=== PATIENT | female | born 1955 | race Caucasian/White ===

== ENCOUNTER 2020-01-29 16:50 | Emergency (ER) | payer MEDICARE, BC ==
[~2020-01-29] VITALS: Ht 160 cm; Wt 104.3 kg
[~2020-01-29 16:50] MED LIST: BUSPIRONE HCL10 MG PO; HYDROCHLOROTH12.5 MG PO; LISINOPRIL20 MG PO; MIRAPEX ER2.25 MG PO; NADOLOL80 MG PO; NAPROXEN500 MG PO; NORCO 5-325 TA1 EACH PO; OMEPRAZOLE20 MG PO; PRILOSEC2.5 MG PO; PROZAC20 MG PO; ZOCOR20 MG PO; ZOFRAN4 MG PO
[2020-01-29] MEDS ORDERED: PRAMIPEXOLE D0.25 MG PO (17:17)
[2020-01-29] MEDS ORDERED: CARBIDOPA-LEVO1 EAC5 PO (17:18)
[2020-01-29] MEDS ORDERED: DULOXETINE HCL60 MG PO (17:19)
== END 2020-01-29 18:50 | disposition home or self-care (01) ==
LOC: ED 16:50
DX: S42.202A Unspecified fracture of upper end of left humerus, initial encounter for closed fracture (principal); S42.212A Unspecified displaced fracture of surgical neck of left humerus, initial encounter for closed fracture; F17.200 Nicotine dependence, unspecified, uncomplicated; Z88.8 Allergy status to other drugs, medicaments and biological substances; Z88.5 Allergy status to narcotic agent; Z79.899 Other long term (current) drug therapy; W01.0XXA Fall on same level from slipping, tripping and stumbling without subsequent striking against object, initial encounter
CPT/HCPCS: 73060; 73200; 99284-25

== ENCOUNTER 2020-02-12 08:20 | Observation (INO) | payer MEDICARE, BC, OTHER ==
[~2020-02-12] VITALS: Ht 160 cm; Wt 106.0 kg
[~2020-02-12 08:20] MED LIST changes: +CARBIDOPA-LEVO1 EAC5 PO; +DULOXETINE HCL60 MG PO; +PRAMIPEXOLE D0.25 MG PO
--- OUTSIDE RECORDS SUMMARY | 2020-02-12 08:22 | XMS ---
PreManage Notification: IGNACIO BACH Security Unix Manager Events No recent Security Events currently on file CRITERIA MET - [facility] [place] - 2 Visits in 30 Days CARE PROVIDERS There are no care providers on record at this time. Lachelle has no Care Guidelines for this patient. A[facility] (12 MO.) [facility] NOTE: Visits indicate total known visits. ED/C VISIT TRACKING (12 MO.) [facility] COMPLAINT: - FALL 01/29/2020 16:51 [facility] Cameron OR TYPE: Emergency COMPLAINT: - L UPPER ARM INJURY DIAGNOSES: - Unspecified displaced fracture of surgical neck of left humer - Allergy status to narcotic agent status - Other skilled nursing (current) drug therapy - Nicotine dependence, unspecified, uncomplicated - Unspecified fracture of upper end of left humerus, initial en - Allergy status to other drugs, medicaments and biological sub - Fall on same level from slipping, tripping and stumbling with - Pain in left shoulder INPATIENT VISIT TRACKING (12 MO.) No inpatient visits to display in this time frame [id number]
[2020-02-12] MEDS ORDERED: COMBIVENT RESPIM4 GM INH (08:42)
[2020-02-12] MEDS ORDERED: POTASSIUM CHLO20 ME1 PO (08:44)
[2020-02-12] MEDS ORDERED: MESALAMINE1.2 GM PO (08:44)
[2020-02-12] MEDS ORDERED: FUROSEMIDE40 MG PO (08:44)
[2020-02-12] MEDS ORDERED: TRAZODONE HCL50 MG PO (08:44)
[2020-02-12] MEDS ORDERED: NITROSTAT0.4 MG SL (08:45)
[2020-02-12] MEDS ORDERED: ASPIRIN EC325 MG PO (08:46)
[2020-02-12] MEDS ORDERED: [UNRECOGNIZED DRUG - OTHER] (08:46)
[2020-02-12] MEDS ORDERED: MAXEPA500 MG PO (08:47)
[2020-02-12] MEDS ORDERED: DAILY VALUE1 EACH PO (08:47)
[2020-02-12] MEDS ORDERED: ALEVE220 MG PO (08:47)
[2020-02-12] MEDS ORDERED: GLUCOSAMINE H1500 MG PO (11:21)
[2020-02-12] MEDS ORDERED: DAILY MULTIPLE1 EACH PO (11:34)
--- NOTE | 2020-02-12 11:45 | NUR ---
1100: PT ARRIVED TO ROOM 121 VIA THE STRECHER. PT IS VERY DROWSY AND IS SLOW TO RESPOND TO QUESTIONS. SHE IS ORIENTED TO PERSON, PLACE AND TIME BUT IS UNABLE TO STATE WHAT HAPPENED OR WHY SHE IS HERE. SHE FELL TO SLEEP SEVERAL TIMES DURRING THE ASSESSMENT AND DOES ASK THE SAME QUESTION SEVERAL TIMES. BED ALARM IS ON AND THE PT SLEEPING AT THIS TIME. PER REPORT THE PT'S LOC IS IMPROVED SINCE TIME OF ADMIT. SEE ASSESSMENT.
[2020-02-12] MEDS ORDERED: [UNRECOGNIZED DRUG - OTHER] PO (11:46)
[2020-02-12] MEDS ORDERED: TIZANIDINE HCL4 MG PO (12:39)
--- NOTE | 2020-02-12 12:40 | EKG ---
[facility] [address] [place], [place] [address] Signed Normal sinus rhythm Left anterior fascicular block Cannot rule out Anterior infarct , age undetermined Abnormal ECG No previous ECGs available Confirmed by ARIANNE BEARDEN MD ([id number]) on 02/12/2020 12:40:06 PM Electronically Signed By: ARIANNE BEARDEN MD 02/12/20 1240 PATIENT NAME: IGNACIO BACH Electrocardiogram DATE OF : 51 PHYSICIAN: ARIANNE BEARDEN MD REPORT #: [id number] REPORT IS CONFIDENTIAL AND NOT TO BE RELEASED WITHOUT AUTHORIZATION
--- NOTE | 2020-02-12 12:56 | NUR ---
Pt sleeping, sat 94% on cpox. Pt awakes to voice and states she is doing ok and falls right back to sleep.
--- NOTE | 2020-02-12 14:05 | NUR ---
PT ORIENTED TO PERSON, PLACE AND TIME. SHE REMAINS DROWSY BUT IS MORE RESPONSIVE THAN SHE WAS ON ADMIT TO MED-SURG. PT REMAINS ON CPOX AND SAT WHILE SLEEPING IS 94%, BED ALARM REMAIN ON AT THIS TIME. SEE ASSESSMENT.
--- NOTE | 2020-02-12 14:18 | NUR ---
PATIENT ASLEEP IN BED. CALL LIGHT WITHIN REACH. WILL CHECK IN WITH PATIENT LATER.
--- NOTE | 2020-02-12 16:35 | NUR ---
PT ORIENTED TO PERSON, PLACE AND TIME AND IS AWAKE AND FOLLOWS ALL COMMANDS. PT DOES NOT REMEMBER BEING BROUGHT INTO THE ED THIS AM. PT UPDATED TO WHY SHE IS HERE AND WHY SHE IS BEING MONITORED. PT DENIES ANY PAIN OR PROBLEMS OTHER THAN WHEN SHE MOVES HER LEFT ARM DUE TO HER OLD FX.
--- NOTE | 2020-02-12 18:35 | NUR ---
Pt resting in her bed and she remains oriented and denies any problems at this time.
--- NOTE | 2020-02-12 19:00 | NUR ---
SHIFT REPORT RECEIVED FROM EDITH GIBBONS. PT RESTING WITH EYES CLOSED. RR EVEN, UNLABORED. CALL LIGHT IN REACH. BED ALARM ON. IV FLUIDS INFUSING PER ORDER.
--- NOTE | 2020-02-12 22:02 | NUR ---
TOOK VITALS/I&Os, GAVE ICE WATER, CALL LIGHT IN REACH
--- NOTE | 2020-02-12 22:15 | NUR ---
ASSESSMENT COMPLETED. LUNGS HAVE EXPIRATORY WHEEZING IN ALL LOBES. CPOX 96% ON RA. LEFT ARM IN SLING, SUPPORTED WITH PILLOWS. CROOKS WNL. IV FLUIDS INFUSING PER ORDER. IV CDI, WNL, FLUSHED WELL. BOWEL TONES ACTIVE. CMS INTACT IN ALL EXTREMITIES. NO EDEMA NOTED. GCS 15. PT IS DROWSY, TRAZODONE HELD. OTHER SCHEDULED MEDS PROVIDED. PT WAKES TO VOICE. ALERT AND ORIENTED TO PLACE, PERSON AND TIME, NOT ORIENTED TO EVENTS. NO OTHER NEEDS AT THIS TIME. CALL LIGHT IN REACH.
--- NOTE | 2020-02-12 23:58 | NUR ---
PT RESTING IN BED, EYES CLOSED. CPOX 96%, RA. IV FLUIDS INFUSING PER ORDER. CALL LIGHT IN REACH.
--- NOTE | 2020-02-13 02:10 | NUR ---
ASSESSMENT COMPLETED. EXPIRATORY WHEEZING IN ALL LOBES. 1+ BLE EDEMA. ABD SOFT, NONTENDER, BOWEL TONES ACTIVE. IV WNL, IV FLUIDS INFUSING PER ORDER. LEFT ARM IN SLING. CMS INTACT IN ALL EXTREMITIES. PT DENIES PAIN. NO OTHER NEEDS AT THIS TIME. CALL LIGHT IN REACH.
--- NOTE | 2020-02-13 02:33 | NUR ---
VITALS AND I&OS DONE AND CHARTED. FRESH ICE WATER GIVEN. BEDSIDE TABLE AND CALL LIGHT IN REACH. PT NEEDS NOTHING MORE AT THIS TIME.
--- NOTE | 2020-02-13 02:33 | NUR ---
ASST TAKING VITALS, EMPTIED CROOKS, RECORDED I&Os, GAVE FRESH WATER, NOTIFIED RN PT STATES 'MY IV FEELS LIKE IT IS PINCHING', PT HAS NO FURTHER REQUESTS AT THIS TIME, CALL LIGHT IN REACH, LEFT PT TO REST
--- NOTE | 2020-02-13 03:58 | NUR ---
PER PT REQUEST , ALEJA JUAREZ AND I HELPED HER REPOSITION TO HER RIGHT SIDE. PUT PILLOWS UNDER HER AND LIFTED HER FEET UP. SHE SAYS SHE IS MORE COMFORTABLE NOW. BEDSIDE TABLE AND CALL LIGHT IN REACH. PT NEEDS NOTHING MORE AT THIS TIME.
--- NOTE | 2020-02-13 03:59 | NUR ---
ASST PT TO LAY ON SIDE, ADDED PLILOWS FOR COMFORT, FRESH ICE WATER, CALL LIGHT IN REACH, NOTHING ELSE REQUESTED AT THIS TIME,
--- NOTE | 2020-02-13 07:32 | NUR ---
REPORT RECEIVED FROM EDWIGE CANALES. PT UP TO CHAIR. PT AGITATED AND STATES SHE WANTS TO GO HOME. PLAN OF CARE DISCUSSED WITH PT. CT TECHNITIAN TO BEDSIDE. PT OFF THE FLOOR FOR CT. PT REPORTS 5/10 PAIN AND DECLINES MEDICATION.
--- NOTE | 2020-02-13 08:46 | NUR ---
MORNING ASSESSMENT AND MEDICATION DUE. PT UP TO CHAIR, RETURNED FROM CT. PT CONFUSED ABOUT "WHY AM I HERE." PLAN OF CARE AND CONDITION EXPLAINED TO PT. PT VERBALIZES UNDERSTANDING. PT REPORTS 5/10 PAIN AND DECLINES PAIN MEDICATION. ASSESSMENT DONE. CMS INTACT TO ALL EXTREMITIES. RIGHT LOWER LEG/FOOT LOREE IN APPEARANCE. PT REPORTS NUMBNESS IN ONE TOE "BECUASE OF THE OLD SURGERY." PT ORIENTED TO ALL. STRENGTH IMPROVING. LUNG SOUNDS CLEAR AT THIS TIME. VITAL SIGNS TAKEN. LINENES CHANGED. PT REPORTS SHE IS NO LONGER TAKING BELCHER/LEVO. MD CONSULTED AND STATES TO HOLD MEDICATION. MD ASKED ABOUT CROOKS CATHETER, ORDER TO REMOVE CATHETER. CATHETER REMOVED PER PROTOCOL. DEPENDS PLACED. PT RESTING IN CHAIR. NO ADDITIONAL REQUESTS OR COMPLAINTS. CALL LIGHT WITHIN REACH.
--- NOTE | 2020-02-13 09:00 | NUR ---
MD TO BEDSIDE. ORDERS PLACED FOR DISCHRAGE. IV SALINE LOCKED. SERVICE LINE LAYER TO BEDSIDE TO ASSIST PT WITH GETTING DRESSED AND READY TO GO HOME. PT VERBALIZES UNDERSTANDING OF PLAN OF CARE. CALL LIGHT WITHIN REACH.
--- NOTE | 2020-02-13 09:11 | NUR ---
IN PT ROOM TO DC IV AND ASSIST PT WITH CHANGING OUT OF HOSPITAL GOWN INTO PERSONAL CLOTHES. PT WAS SITTING UP RIGHT IN THE CHAIR. IV CATHETER INTACT AFTER DC. IV SITE WNL AND COVERED WITH PRESSURE BANDAGE. PT EDUCATED WHEN TO REMOVE IV BANDAGE AND VERBALIZED UNDERSTANDING. PT CHANGED INTO PERSONAL CLOTHES WITH MINIMAL ASSISTANCE AND DEMONSTRATED HOW TO CHANGE WITH RESPECT TO LIMITED MOBILITY IN LEFT ARM. SHOULDER SLING REPLACED BY PATIENT CORRECTLY. PT CALLED RIDE TO PICK HER UP AT 0900 AFTER CONSULTATION WITH . PT REMAINED SEATED IN CHAIR. CHAIR LOCKED WITH PRESSURE ALARM ON. BEDSIDE TABLE AND CALL LIGHT WITHIN PT REACH. PT DENIES FURTHER NEEDS AT THIS TIME.
--- NOTE | 2020-02-13 11:01 | NUR ---
PT DEPARTED WITHOUT DISCHARGE INSTRUCTIONS. CHARGE NURSE STATES SHE FOLLWED UP WITH PT BY PHONE AND GAVE DISCHARGE INSTRUCTIONS TO PT OVER THE PHONE. PT DID SPEAK WITH PHARMCIST AND HAS PAPER COPY OF INSTRUCTIONS.
== END 2020-02-13 09:43 | disposition home or self-care (01) ==
LOC: ED 08:20 → MS 08:21
PROVIDERS: ADMIT Internal Medicine
DX: T42.4X1A Poisoning by benzodiazepines, accidental (unintentional), initial encounter (principal); G20 Parkinson's disease; R41.82 Altered mental status, unspecified; F17.200 Nicotine dependence, unspecified, uncomplicated; Z87.81 Personal history of (healed) traumatic fracture; Z88.8 Allergy status to other drugs, medicaments and biological substances; Z88.5 Allergy status to narcotic agent; Z79.899 Other long term (current) drug therapy; Z79.82 Long term (current) use of aspirin; W18.30XA Fall on same level, unspecified, initial encounter
CPT/HCPCS: 36415; 51702; 70450; 71045; 80048; 80053; 81001; 83735; 84484; 85025; 93005; 93010; 96360; 96361; 99285-25; C9803; G0378; J7030; J7040

== ENCOUNTER 2020-10-13 13:16 | Emergency (ER) | payer OTHER, MEDICARE, BC ==
[~2020-10-13] VITALS: Ht 160 cm; Wt 100.2 kg
[~2020-10-13 13:16] MED LIST changes: +ALEVE220 MG PO; +ASPIRIN EC325 MG PO; +COMBIVENT RESPIM4 GM INH; +DAILY MULTIPLE1 EACH PO; +DAILY VALUE1 EACH PO; +FUROSEMIDE40 MG PO; +GLUCOSAMINE H1500 MG PO; +MAXEPA500 MG PO; +MESALAMINE1.2 GM PO; +NITROSTAT0.4 MG SL; +POTASSIUM CHLO20 ME1 PO; +TIZANIDINE HCL4 MG PO; +TRAZODONE HCL50 MG PO; +[UNRECOGNIZED DRUG - OTHER]; +[UNRECOGNIZED DRUG - OTHER] PO
[2020-10-13] MEDS ORDERED: PRIMIDONE50 MG PO (13:50)
[2020-10-13] MEDS ORDERED: GLUCOSAMINE1000 MG PO (13:52)
== END 2020-10-13 14:30 | disposition home or self-care (01) ==
LOC: ED 13:16
DX: S51.811A Laceration without foreign body of right forearm, initial encounter (principal); W01.10XA Fall on same level from slipping, tripping and stumbling with subsequent striking against unspecified object, initial encounter; F17.200 Nicotine dependence, unspecified, uncomplicated; Z88.8 Allergy status to other drugs, medicaments and biological substances; Z79.899 Other long term (current) drug therapy; Z79.82 Long term (current) use of aspirin
CPT/HCPCS: 12002; 99282-25; 99406

== ENCOUNTER 2023-11-13 10:56 | Day surgery (SDC) | payer MEDICARE, BC, OTHER ==
[~2023-11-13] VITALS: Ht 157.5 cm; Wt 85.3 kg
[~2023-11-13 10:56] MED LIST changes: +CALCIUM500 MG PO; +CHOLESTYRAMINE378 GM PO; +DIPHENOXYLATE-1 EACH PO; +FLUOXETINE HCL40 MG PO; +FUROSEMIDE20 MG PO; +GLUCOSAMINE1000 MG PO; +HYDROCHLOROTH12.5 M1 PO; +IBLOOD GLUCOSE TEST STRIP 1 EA TEST VI PRN; +LACTATED RINGER'S 1,000 ML IV SCH; +LEVOTHYROXINE50 MC1 PO; +LIALDA1.2 GM PO; +LIDOCAINE HCL 1% 5 ML SDV INJ ONE; +MELATONIN5 M2 PO; +MIDAZOLAM HCL 5 MG/5 ML VIAL IV PRN; +PRIMIDONE50 MG PO; +fentaNYL citrate 100 MCG/2 ML VIAL IV PRN
[2023-11-13 11:20] VITALS: BP 126/68
[2023-11-13] MEDS ORDERED: fentaNYL citrate 100 MCG/2 ML VIAL ONE (11:54)
[2023-11-13] MEDS ORDERED: MIDAZOLAM HCL 5 MG/5 ML VIAL ONE (11:54)
[2023-11-13] MEDS ORDERED: CEFAZOLIN SODIUM 2 GM/20 ML SYR ONE (11:55)
[2023-11-13] MEDS ORDERED: CEFAZOLIN SODIUM 2 GM/20 ML SYR IV SCH (12:06)
--- NOTE | 2023-11-13 12:42 | NUR ---
11/13/23 Marshall2 Gail Shin 1237-PATIENT ARRIVED TO PACU ON 2L NC RR EVEN. PATIENT LAYING LEFT LATERAL ABDOMEN SOFT IVF INFUSING. REACTIVE TO VERBAL STIMULI OPENS EYES DENIES PAIN OR NAUSEA. DOZES BACK TO SLEEP.
[2023-11-13 13:30] VITALS: BP 116/66
--- NOTE | 2023-11-13 14:27 | OR ---
[facility] [address] [place], [place] [address] Signed DATE OF OPERATION: 11/13/2023 SURGEON: Merna Tanner MD PREOPERATIVE DIAGNOSIS: Positive Cologuard test April 2023. POSTOPERATIVE DIAGNOSIS: Mild cecal inflammation, right colon inflammation, otherwise normal. No evidence of polyp. False-positive Cologuard test. PROCEDURE: Total colonoscopy to cecum with biopsy of cecum and right colon and rectum. ANESTHESIA: Intravenous sedation; fentanyl 100 mcg and Versed 4 mg. INDICATION: This 68-year-old white woman is a patient of RAYMOND Sterling. She is known to me from the past having had pulmonary issues. I last saw her in 2015. She has been referred for colonoscopy on the basis of a positive Cologuard test performed in May 15, 2023. She has no symptoms of bleeding, diarrhea, or constipation and no known history of colon cancer. She understands the risk of bleeding, infection, and perforation related to colonoscopy and wished to proceed. FINDINGS: The prep was good. Complete colonoscopy was undertaken to the cecum. There was mild inflammation of the cecum, but no actual polyp or neoplasm. The right colon similarly was inflamed minimally. The remaining colon had no evidence of polyps, diverticular formation, colitis, or cancer. DESCRIPTION OF PROCEDURE: The patient was brought to the endoscopy suite and placed in the lateral decubitus position, given intravenous sedation to the point of slurred speech and nystagmus. Digital rectal examination was normal. Olympus video colonoscope was passed in the rectum and manipulated throughout the colon ultimately intubating the cecum itself. There appeared to be mild edematous changes of the cecum and on that basis biopsies were obtained. The scope was withdrawn and similar findings were noted in the right colon which was additionally biopsied. Further Electronically Signed By: MERNA TANNER MD 11/13/23 1427 PATIENT NAME: IGNACIO BACH OPERATIVE REPORT DATE OF : 51 REPORT #: [id number] PHYSICIAN: MERNA TANNER MD PCP: CAITLIN ZAVALA PAC REPORT IS CONFIDENTIAL AND NOT TO BE RELEASED WITHOUT AUTHORIZATION [facility] [address] [place], [place] [address] Signed withdrawal of the scope showed no sign of abnormality; specifically no polyps, diverticular formation, colitis, or cancer. Retroflexed view of the rectum was reasonably normal. Biopsies were taken of the rectum to assess for occult colitis also. The scope was removed and the patient was taken to the recovery room in good condition. CONCLUDING DIAGNOSIS: Apparently false-positive Cologuard test. Mild inflammation of cecum. PLAN: We will check her pathology report of course. Would recommend repeat colonoscopy in three years. This can be done sooner if symptoms should occur. It is well acknowledged that the incidence of false-positive Cologuard test currently is 17%, increase seen in incidence in those older than 65 years of age. This may will be such a situation. MD CONNER Krause/BETTE /[id number] cc: Caitlin Zavala PA-C Copies: CAITLIN ZAVALA ~ Electronically Signed By: MERNA TANNER MD 11/13/23 1427 PATIENT NAME: IGNACIO BACH OPERATIVE REPORT DATE OF : 51 REPORT #: [id number] PHYSICIAN: MERNA TANNER MD PCP: CAITLIN ZAVALA REPORT IS CONFIDENTIAL AND NOT TO BE RELEASED WITHOUT AUTHORIZATION
--- NOTE | 2023-11-15 11:48 | PATH ---
[facility] [address] [place], [place] [address] Signed SPECIMEN(S): A CECUM COLON BIOPSY SPECIMEN(S): B ASCENDING RIGHT COLON BIOPSY SPECIMEN(S): C RECTUM BIOPSY SPECIMEN SOURCE: A. CECUM COLON BIOPSY B. ASCENDING RIGHT COLON BIOPSY C. RECTUM BIOPSY CLINICAL HISTORY: Positive Cologuard, mild cecal inflammation FINAL PATHOLOGIC DIAGNOSIS: A. Cecum, biopsies: - Mild active colitis with mucosal erosion, negative for granulomas or dysplasia. B. Ascending/right colon, biopsies: - Mild active colitis with mucosal erosion, negative for granulomas or dysplasia. C. Rectum, biopsies: - Focal acute cryptitis, nonspecific. - Negative for granulomas or dysplasia. AMB MICROSCOPIC EXAMINATION: Histologic sections of all submitted blocks are examined by light microscopy. These findings, together with the gross examination, support the pathologic diagnosis. GROSS DESCRIPTION: A. The specimen, labeled and designated "Walker, cecal colon biopsy," is received in formalin and consists of three hubbard soft tissue fragments, ranging from 0.2-0.3 cm. Entirely submitted in (A1). B. The specimen, labeled and designated "Walker, ascending/right colon biopsy," is received in formalin and consists of two hubbard soft tissue fragments, ranging from 0.2-0.4 cm. Entirely submitted in (B1). C. The specimen, labeled and designated "Walker, rectum biopsy," is received in formalin and consists of four hubbard soft tissue fragments, ranging from 0.1-0.2 cm. Entirely submitted in (C1). VB (under the direct supervision of a pathologist) PATIENT NAME: IGNACIO BACH PATHOLOGY DATE OF : 51 REPORT #: [id number] PHYSICIAN: HANNA KAHN PCP: KAREN SYLVESTER PAC REPORT IS CONFIDENTIAL AND NOT TO BE RELEASED WITHOUT AUTHORIZATION [facility] [address] [place], [place] [address] Signed The Gross Description was prepared using a voice recognition system. The report was reviewed for accuracy; however, sound-alike word errors, addition and/or deletions may occur. If there is any question about this report, please contact Client Services. ADDITIONAL NOTES: Immunohistochemical and/or in situ hybridization studies if performed in this case included appropriate positive controls that reacted as expected. This test was developed and its performance characteristics determined by [facility]. It has not been cleared or approved by the U.S. Food and Drug Administration. The FDA has determined that such clearance or approval is not necessary. This test is used for clinical purposes. It should not be regarded as investigational or for research. [facility] is certified under the Clinical Laboratory Improvement Amendments of 1988 (CLIA) as qualified to perform high complexity clinical laboratory testing. PERFORMING LABORATORY: Technical component was performed by [facility], [address] [place] [address] (CLIA# [id number]). Professional interpretation was performed by [facility] [address] [place] [id number] Diagnostician: Waleska Downey MD Pathologist Electronically Signed 11/15/2023 Copies: ~ PATIENT NAME: IGNACIO BACH PATHOLOGY DATE OF : 51 REPORT #: [id number] PHYSICIAN: HANNA PATHOLOGY PCP: KAREN SYLVESTER PAC REPORT IS CONFIDENTIAL AND NOT TO BE RELEASED WITHOUT AUTHORIZATION
== END 2023-11-13 13:40 | disposition home or self-care (01) ==
LOC: OPS 10:56 → DS 10:56 → OPS 11:50 → DS 12:15 → OPS 13:40
PROVIDERS: ATTEND Surgery
PROC: 0DBP8ZX Excision of Rectum, Via Natural or Artificial Opening Endoscopic, Diagnostic (ICD-10-PCS; 2023-11-13)
PROC: 0DBF8ZX Excision of Right Large Intestine, Via Natural or Artificial Opening Endoscopic, Diagnostic (ICD-10-PCS; 2023-11-13)
PROC: 0DBH8ZX Excision of Cecum, Via Natural or Artificial Opening Endoscopic, Diagnostic (ICD-10-PCS; principal; 2023-11-13 11:50)
DX: K52.9 Noninfective gastroenteritis and colitis, unspecified (principal); K62.89 Other specified diseases of anus and rectum; R91.1 Solitary pulmonary nodule; D64.9 Anemia, unspecified; I10 Essential (primary) hypertension; E78.5 Hyperlipidemia, unspecified; J44.9 Chronic obstructive pulmonary disease, unspecified; F17.200 Nicotine dependence, unspecified, uncomplicated; Z79.899 Other long term (current) drug therapy; Z88.8 Allergy status to other drugs, medicaments and biological substances
CPT/HCPCS: 99153; G0500; J0690; J2250; J3010; J7121

== ENCOUNTER 2025-05-28 17:30 | Emergency (ER) | payer MEDICARE, BC, OTHER ==
[~2025-05-28] VITALS: Ht 154.9 cm; Wt 86.9 kg
[~2025-05-28 17:30] MED LIST changes: -IBLOOD GLUCOSE TEST STRIP 1 EA TEST VI PRN; -LACTATED RINGER'S 1,000 ML IV SCH; -LIDOCAINE HCL 1% 5 ML SDV INJ ONE; -MIDAZOLAM HCL 5 MG/5 ML VIAL IV PRN; -fentaNYL citrate 100 MCG/2 ML VIAL IV PRN
[2025-05-28] MEDS ORDERED: DULOXETINE HCL60 MG PO (18:32)
[2025-05-28] MEDS ORDERED: SIMVASTATIN40 MG PO (18:33)
[2025-05-28] MEDS ORDERED: ALBUTEROL/IPRATROPIUM 3 ML NEB INH ONE (18:45)
[2025-05-28 19:18] LABS: BASOPHILS 0.5 % (0.1-1.2); EOSINOPHILS 12.8 % (0.7-5.8); LYMPHOCYTES 19.0 % (19.3-51.7); MCH 32.4 PG (25.6-32.2); MCHC 34.6 g/dL (32.2-35.5); MCV 93.9 fL (79.4-94.8); MONOCYTES 8.9 % (4.7-12.5); NEUTROPHILS 58.5 % (34.0-71.1); RBC 3.76 M/uL (3.93-5.22)
[2025-05-28 19:38] LABS: INR 1.07 (0.80-1.30); PROTIME 13.1 Sec (11.2-14.2)
[2025-05-28 19:39] LABS: ALT (SGPT) 200.0 U/L (14-59); AST (SGOT) 85.0 U/L (15-37); GLOMERULAR FILTRATION RATE,EST 41.0 mL/min (>60); PROTEIN, TOTAL 6.8 g/dL (6.4-8.2); UREA NITROGEN 27.0 mg/dL (7-18)
[2025-05-28 20:23] LABS: BLOOD/HGB, URINE LARGE (Negative); KETONE, URINE NEGATIVE (Negative); LEUK ESTERASE, URINE LARGE (negative); NITRITE, URINE POSITIVE (negative)
[2025-05-28 20:35] LABS: BACTERIA, URINE 4+ /hpf (negative); CRYSTALS, URINE NONE SEEN (0-1+); EPITHELIAL CELLS, URINE SQUAMOUS 1+ /lpf (0-1+)
[2025-05-28 20:36] LABS: CASTS, URINE NONE SEEN \\lpf; REFLEX CULTURE, URINE Yes (No)
[2025-05-28] MEDS ORDERED: SODIUM CHLORIDE 0.9% 1,000 ML IV ONE (21:45)
[2025-05-28 23:24] LABS: LACTATE DEHYDROGENASE 239 U/L (81-234)
[2025-05-28 23:25] LABS: GAMMA GLUTAMYL TRANSFERASE 1239 U/L (5-55)
[2025-05-28 23:29] LABS: ALT (SGPT) 189.0 U/L (14-59); AST (SGOT) 83.0 U/L (15-37); PROTEIN, TOTAL 6.4 g/dL (6.4-8.2)
[2025-05-28] MEDS ORDERED: OXYCODONE HCL5 M1 PO (23:56)
[2025-05-28] MEDS ORDERED: CEFDINIR300 MG PO (23:56)
[2025-05-28] MEDS ORDERED: URSODIOL PO (23:56)
[2025-05-28] MEDS ORDERED: ONDANSETRON ODT8 MG PO (23:56)
[2025-05-29] MEDS ORDERED: CEFDINIR 300 MG HOME.PACK PO ONE (00:15)
[2025-05-29] MEDS ORDERED: HYDROmorphone HCL 2 MG HOME.PACK PO ONE (00:15)
[2025-05-29] MEDS ORDERED: ONDANSETRON 4 MG HOME.PACK SL ONE (00:15)
[2025-05-29 00:29] VITALS: BP 138/79
[2025-05-30 15:58] LABS: HAPTOGLOBIN 282 mg/dL (30-200)
[2025-05-30 23:32] LABS: ANTI-NUCLEAR AB ANA,IGG ELISA None Detected (None Detected)
[2025-05-31 07:09] LABS: MITOCHONDRIAL (M2) AB,IGG 1.9 Units (0.0-24.9)
== END 2025-05-29 00:39 | disposition home or self-care (01) ==
LOC: ED 17:30
PROVIDERS: Emergency Medicine; Family Medicine
DX: E80.6 Other disorders of bilirubin metabolism (principal); E87.8 Other disorders of electrolyte and fluid balance, not elsewhere classified; N39.0 Urinary tract infection, site not specified; I10 Essential (primary) hypertension; E78.00 Pure hypercholesterolemia, unspecified; J44.9 Chronic obstructive pulmonary disease, unspecified; K21.9 Gastro-esophageal reflux disease without esophagitis; G47.00 Insomnia, unspecified; F17.200 Nicotine dependence, unspecified, uncomplicated; Z90.49 Acquired absence of other specified parts of digestive tract; Z79.82 Long term (current) use of aspirin; Z79.899 Other long term (current) drug therapy; Z88.5 Allergy status to narcotic agent
CPT/HCPCS: 36415; 70450; 74177; 76705; 80053; 80076; 81001; 82248; 82977; 83010; 83615; 83690; 84703; 85025; 85610; 86038; 86255; 87088; 94640; 96374; 99284-25; A9270; G0480; J0696; J7030